=== PATIENT | female | born 1970 | race Caucasian/White ===

== ENCOUNTER 2018-09-20 16:02 | Outpatient (CLI) | payer OTHER ==
--- NOTE | 2018-10-04 09:28 | Mammography Report ---
Reason: SCREENING MAMMO Procedure Date: 09/20/2018 Accession Number: [id number] / [id number] Procedure: FEMI - Screening Mammo w/Jermaine CPT Code: FULL RESULT: EXAM: Screening Mammo w/Jermaine DATE: 09/20/2018 4:35 PM CLINICAL HISTORY: Screening encounter. History of nulliparity and early menses. TECHNIQUE: Bilateral CC and MLO views were obtained. COMPARISON: None FINDINGS: The breasts demonstrate heterogeneously dense fibroglandular parenchyma bilaterally. In the left upper outer breast approximately 4.8 cm from the nipple is a 1 cm partially obscured ovoid hypodense mass best seen on MLO 3-D image 11 and CC 3-D image 31. This requires additional characterization by focused left breast ultrasound. No suspicious masses, clustered microcalcifications, or regions of architectural distortion are identified. IMPRESSION: Incomplete examination RECOMMENDATION: Additional evaluation of the left breast by ultrasound as above. BIRADS CATEGORY 0: Incomplete examination STANDARD QUALIFYING STATEMENTS: 1. This examination was not reviewed with the aid of Computer-Aided Detection (CAD). 2. A negative or benign imaging report should not preclude biopsy if clinically suspicious findings are present. 3. Dense breasts may obscure an underlying neoplasm. 4. This examination was reviewed with the aid of 3D breast imaging (tomosynthesis).
== END 2018-09-20 16:03 | disposition home or self-care (01) ==
LOC: DI 16:02
DX: Z12.31 Encounter for screening mammogram for malignant neoplasm of breast (principal); R92.8 Other abnormal and inconclusive findings on diagnostic imaging of breast
CPT/HCPCS: 77063; 77067

== ENCOUNTER 2018-10-17 09:51 | Outpatient (CLI) | payer OTHER ==
--- NOTE | 2018-10-17 13:29 | Ultrasound Report ---
Reason: ABN MAMMO - LT SPEC VIEW US Procedure Date: 10/17/2018 Accession Number: [id number] / [id number] Procedure: US - Breast Unilateral Limited CPT Code: FULL RESULT: EXAM: Breast Unilateral Left Limited DATE: 10/17/2018 10:53 AM CLINICAL HISTORY: Follow-up abnormal mammogram 09/20/2018 TECHNIQUE: Real-time scanning by the research clerk with me present. Saved static images reviewed. COMPARISON: Mammogram 09/20/2018 FINDINGS: In the left upper outer quadrant in the area of mammographic concern, no cystic or solid mass or abnormal fluid collection is seen. IMPRESSION: Negative left upper outer quadrant breast ultrasound. Suggest follow-up left breast unilateral mammogram in 6 months. BI-RADS 3: Probably benign.
== END 2018-10-17 09:52 | disposition home or self-care (01) ==
LOC: DI 09:51
PROVIDERS: ATTEND Naturopath
DX: R22.2 Localized swelling, mass and lump, trunk (principal)
CPT/HCPCS: 76642